=== PATIENT | male | born 1985 | race African-American/Black ===

== ENCOUNTER 2024-07-11 12:43 | Emergency (ER) | payer SELFPAY ==
[2024-07-11] MEDS: methylPREDNISolone Sodium Succinate 125 MG/2 ML SDV IM ONE (13:25)
[2024-07-11] MEDS: Ketorolac 30 MG/ML SDV IM STA (13:25)
== END 2024-07-11 13:34 | disposition home or self-care (01) ==
LOC: FB.ED 12:43
DX: L23.4 Allergic contact dermatitis due to dyes (principal); I10 Essential (primary) hypertension; Z79.52 Long term (current) use of systemic steroids
CPT/HCPCS: 96372; 99282; 99283; J1885; J2919